=== PATIENT | male | born 1975 ===

== ENCOUNTER 2021-09-10 11:21 | Emergency (ER) | payer MEDICAID ==
[~2021-09-10] VITALS: Ht 177.8 cm; Wt 109.0 kg
[2021-09-10 12:10] VITALS: BP 157/116
== END 2021-09-10 20:05 | disposition left against medical advice (07) ==
LOC: ER 11:22
DX: M79.642 Pain in left hand (principal); H92.02 Otalgia, left ear; M12.9 Arthropathy, unspecified; H72.92 Unspecified perforation of tympanic membrane, left ear; Z88.0 Allergy status to penicillin
CPT/HCPCS: 73130; 99283